=== PATIENT | male | born 1945 | race Caucasian/White ===

== ENCOUNTER → 2016-10-31 | Outpatient (CLI) | payer OTHER ==
[~2016-10-31] MED LIST: ASPIRIN CHEWABL81 MG PO; CARDURA 2MG TAB2 MG PO; CELEBREX200 MG PO; ELIQUIS2.5 MG PO; LISINOPRIL5 MG PO; OXCARBAZEPINE300 MG PO; PERCOCET 10-321 EACH PO; SAW PALMETTO500 MG PO; SINGULAIR10 MG PO; TRAMADOL HCL50 MG PO; ZYRTEC10 M3 PO
[2016-10-31 10:58] LABS: HEMOGLOBIN 12.7 gm/dl (14.0-17.5); RED BLOOD COUNT 4.26 M/UL (4.20-5.50); WHITE BLOOD COUNT 5.5 K/UL (4.5-11.0)
[2016-10-31 11:16] LABS: BUN/CREATININE RATIO 23 (0-10)
== END ==
LOC: EDSTATUS 10:00 → OPSV2 10:00
PROVIDERS: Orthopaedic Surgery
DX: Z01.810 Encounter for preprocedural cardiovascular examination (principal); Z01.812 Encounter for preprocedural laboratory examination; M17.11 Unilateral primary osteoarthritis, right knee
CPT/HCPCS: 36415; 80048; 85025; 87081; 93005

== ENCOUNTER → 2016-11-01 | Outpatient (CLI) | payer OTHER | LOC: LAB 14:31 | DX: Z01.812 Encounter for preprocedural laboratory examination (principal); M17.11 Unilateral primary osteoarthritis, right knee | CPT/HCPCS: 81001 ==

== ENCOUNTER → 2020-09-24 | Outpatient (CLI) | payer MEDICARE ==
[~2020-09-24] MED LIST changes: +ALLERGY INJECTION SC; +HYDROCHLOROTH12.5 MG PO; +LOPRESSOR 25 MG25 MG PO; +NORCO 10-325 T1 EACH PO
== END ==
LOC: KOH-I 10:13
DX: R93.89 Abnormal findings on diagnostic imaging of other specified body structures (principal); R91.8 Other nonspecific abnormal finding of lung field
CPT/HCPCS: 71250

== ENCOUNTER → 2021-04-14 | Outpatient (CLI) | payer MEDICARE | LOC: EXRD 08:55 | DX: Z13.6 Encounter for screening for cardiovascular disorders (principal); M81.0 Age-related osteoporosis without current pathological fracture | CPT/HCPCS: 76706; 77080 ==

== ENCOUNTER → 2021-09-12 | Outpatient (CLI) | payer MEDICARE | LOC: EMI 13:00 | DX: R41.3 Other amnesia (principal); R90.82 White matter disease, unspecified | CPT/HCPCS: 70551 ==

== ENCOUNTER → 2021-11-15 | Outpatient (CLI) | payer MEDICARE | LOC: KOH-I 11-10 08:30 | DX: M19.011 Primary osteoarthritis, right shoulder (principal); R91.8 Other nonspecific abnormal finding of lung field | CPT/HCPCS: 73200 ==

== ENCOUNTER → 2021-12-07 | Outpatient (CLI) | payer MEDICARE ==
[~2021-12-07] MED LIST changes: +ALLERGY INJECTION INJ; -ALLERGY INJECTION SC; +CALCITRIOL0.25 MCG PO; +CELEBREX50 MG PO; +CYCLOBENZAPRINE10 MG PO; +DONEPEZIL HCL5 MG PO; +FLOMAX 0.4 MG0.4 MG PO; +HYDROCHLOROTH12.5 M1 PO; +LISINOPRIL10 MG PO; -LISINOPRIL5 MG PO; +MYRBETRIQ25 MG PO; +OXYCODON-ACETA1 EAC1 PO; +PROSCAR 5 MG TAB5 MG PO; +SAW PALMETTO450 MG PO; +ZOFRAN 4 MG TAB4 MG PO; +ZYRTEC10 MG PO
== END ==
LOC: LAB 11:03
PROVIDERS: Orthopaedic Surgery
DX: Z01.812 Encounter for preprocedural laboratory examination (principal)
CPT/HCPCS: 36415; 80048; 86850; 86900; 86901

== ENCOUNTER 2021-12-08 09:49 | Day surgery (SDC) | payer MEDICARE ==
[~2021-12-08] VITALS: Ht 180.3 cm; Wt 96.6 kg
[~2021-12-08 09:49] MED LIST changes: -CYCLOBENZAPRINE10 MG PO; -DONEPEZIL HCL5 MG PO; -OXYCODON-ACETA1 EAC1 PO; -ZOFRAN 4 MG TAB4 MG PO
[2021-12-08] MEDS ORDERED: CYCLOBENZAPRINE10 MG PO (10:46)
[2021-12-08] MEDS ORDERED: ZOFRAN 4 MG TAB4 MG PO (10:48)
[2021-12-08] MEDS ORDERED: OXYCODON-ACETA1 EAC1 PO (10:49)
--- NOTE | 2021-12-08 16:41 | NUR ---
SCD'S APPLIED POLAR ICE IN PLOACE, PT TOLERATING WELL. COMPRESSION STOCKINGS IN PLACE NEURO CHECKS INTACT INCENTIVE SPIROMETER TEACHING DONE.
[2021-12-08] MEDS ORDERED: DONEPEZIL HCL5 MG PO (16:51)
[2021-12-09 06:59] LABS: HEMOGLOBIN 10.9 gm/dl (14.0-17.5); RED BLOOD COUNT 3.61 M/UL (4.20-5.50); WHITE BLOOD COUNT 8.1 K/UL (4.5-11.0)
[2021-12-09 10:01] LABS: BUN/CREATININE RATIO 22 (0-10)
== END 2021-12-09 16:00 | disposition home or self-care (01) ==
LOC: OR 09:49 → M/S 15:07 → OR 15:30
PROVIDERS: Orthopaedic Surgery; Physician Assistant
PROC: 0RRJ00Z Replacement of Right Shoulder Joint with Reverse Ball and Socket Synthetic Substitute, Open Approach (ICD-10-PCS; principal; 2021-12-08 15:30)
PROC: 3E0T3BZ Introduction of Anesthetic Agent into Peripheral Nerves and Plexi, Percutaneous Approach (ICD-10-PCS; principal; 2021-12-08 15:30)
DX: M19.011 Primary osteoarthritis, right shoulder (principal); M19.012 Primary osteoarthritis, left shoulder; I10 Essential (primary) hypertension; K21.9 Gastro-esophageal reflux disease without esophagitis; M06.9 Rheumatoid arthritis, unspecified; N40.0 Benign prostatic hyperplasia without lower urinary tract symptoms; Z79.82 Long term (current) use of aspirin; Z79.899 Other long term (current) drug therapy; Z88.1 Allergy status to other antibiotic agents; Z88.2 Allergy status to sulfonamides; Z88.5 Allergy status to narcotic agent; Z88.8 Allergy status to other drugs, medicaments and biological substances; Z96.653 Presence of artificial knee joint, bilateral
CPT/HCPCS: 36415; 73020; 80048; 82550; 82553; 82962; 83735; 84484; 85025; 93005; 97116; 97116-GP-CQ; 97161; 97166; C1713; C1776; J0171; J0690; J1100; J1885; J2001; J2370; J2405; J2704; J2710; J2795; J3370

== ENCOUNTER → 2022-01-12 | Outpatient (CLI) | payer MEDICARE ==
[~2022-01-12] MED LIST changes: +CYCLOBENZAPRINE10 MG PO; +DONEPEZIL HCL5 MG PO; +OXYCODON-ACETA1 EAC1 PO; +ZOFRAN 4 MG TAB4 MG PO
== END ==
LOC: KOH-I 10:32
DX: R91.8 Other nonspecific abnormal finding of lung field (principal)
CPT/HCPCS: 71250